=== PATIENT | female | born 1965 | race Caucasian/White ===

== ENCOUNTER → 2020-06-01 | Outpatient (CLI) | payer BC ==
[2020-06-01] VITALS (11 sets, daily range): BP systolic 95–118; BP diastolic 54–63
[~2020-06-01] MED LIST: BAMLANIVIMAB IV ONE; NORMAL SALINE IV ONE
--- NOTE | 2020-06-01 14:26 | PDOC1 ---
Date of Service: DATE: 06/01/20 TIME: 14:08 H & P H&P CC: SOB HPI: Patient c/o cough nasal congestion SOB and fatigue. Patient lives with covid pos (11/26/19) and has progressive symptoms for last 5 days Current Medications Taking: * ProAir HFA 90 mcg/inh aerosol 2 puffs inhaled q6h * Dupixent 300 mg/2mL solution as directed subcutaneously every 2 weeks * Gammagard * Pantoprazole 40 mg delayed release tablet 1 tab(s) orally bid * Topamax 50 mg tablet 1 tab(s) orally day * Debby * Progesterone 200 mg capsule 1 cap(s) orally once a day * Azithromycin 250 mg tablet 2 tabs on the first day, then 1 tab daily for 4 days orally * estradiol 1.6 marion 1/4 lozenge orally once a day * Cevimeline 30 mg capsule 1 cap(s) orally bid PMH: chronic sinusitis, hypogammaglobulinemia, asthma, allergic rhinitis, eczema, GERD, IBS Surgial Hx: Gallbladder, sinus x4 Family Hx: mother - alive with Alzheimers. Father - alive, diagnosed with heart disease Social Hx: no tobacco, occasional ETOH, Allergies: Clindamycin - hives Review of Systems: cough, congestion SOB, chest pressure, fatigue VS: Ht: 67in, Wt 146lb, BMI 22.86, Temp 99.8 F, SaO2 98% Assessments * Other viral pneumonia - J12.89 (Primary) * COVID-19 - U07.1 * BMI 22-22.9, adult - Z68.22 * Hypogammaglobulinemia - D80.1 * Chronic pansinusitis - J32.4 * Mild intermittent asthma without complication - J45.20 Plan: 1. Outpatient infusion of Bamlanivimab. NOTE: Risk and benefits described to the patient. Patient understands this is an investigational treatment that is being used under the Emergency Use Authorization for the treatment of COVID-19. Patient provided the [facility] Bamlanivimab Antibody Playbook. Patient was informed of alternative treatments and agrees to proceed with treatment plan. Justifications for Admission Other Justification NICOLE HARRINGTON MD Jun 01, 2020 14:26
== END | disposition home or self-care (01) ==
LOC: OPS 14:05
PROVIDERS: ATTEND Family Medicine
DX: U07.1 COVID-19 (principal)
CPT/HCPCS: M0239; Q0239